=== PATIENT | male | born 1950 | race Caucasian/White ===

== ENCOUNTER 2017-01-02 06:47 | Emergency (ER) | payer MEDICARE, BC ==
[~2017-01-02] VITALS: Ht 170.2 cm; Wt 81.6 kg
[2017-01-02] MEDS ORDERED: LABE100T PO (06:53)
--- NOTE | 2017-01-02 06:57 | NUR ---
PT BIBSELF CHEST PAIN X 2 DAYS,DENIES SEX ENHANCING MEDS USE. PT AOX3 RR EVEN AND UNLABORED. NO SOB NOTED. NAD NOTED. NO NVD AT THIS TIME. PT GOWNED AND PLACED ON MONTIOR. DR. CUMMINGS AT BEDSIDE FOR EVAL.
[2017-01-02] MEDS ORDERED: LIDOCAINE VISCOUS 2% UD 15 ML UDC ONE (07:09)
[2017-01-02] MEDS ORDERED: MAG HYDROX/AL HYDROX/SIMETH 30 ML UDC ONE (07:09)
--- NOTE | 2017-01-02 07:12 | NUR ---
Alessia snyder in EDM - 01/02/17 at 0712 by [facility] AT BEDSIDE FOR EVAL.
--- NOTE | 2017-01-02 07:12 | NUR ---
RADIOLOGY AT BEDSIDE FOR CXR
--- NOTE | 2017-01-02 07:22 | NUR ---
REPORT GIVEN TO CAL CHAVARRIA FOR ROBINA
--- NOTE | 2017-01-02 07:23 | NUR ---
RECEIVED REPORT FOR ROBINA.
[2017-01-02 07:29] LABS: BASOPHILS # (AUTO) 0.1 /CMM (0.0-0.2); BASOPHILS % (AUTO) 0.5 % (0.0-2.0); EOSINOPHILS # (AUTO) 0.2 /CMM (0.0-0.7); HEMATOCRIT 35 % (39-51); HEMOGLOBIN 11.6 g/dL (13.5-17.5); LYMPHOCYTES # (AUTO) 11.4 /CMM (0.8-4.8); LYMPHOCYTES % (AUTO) 66.8 % (20.0-44.0); MEAN CORPUSCULAR HEMOGLOBIN 32 PG (26.0-33.0); MEAN CORPUSCULAR HGB CONC 33 g/dl (31.0-36.0); MEAN CORPUSCULAR VOLUME 96 fL (80-96); MONOCYTES # (AUTO) 1.9 /CMM (0.1-1.30); MONOCYTES % (AUTO) 11.1 % (2.0-12.0); NEUTROPHILS # (AUTO) 3.5 /CMM (1.8-8.9); NEUTROPHILS % (AUTO) 20.6 % (43.0-81.0); PLATELET COUNT (AUTO) 267 /CMM (150-450); RDW COEFFICIENT OF VARIATION 12.6 (11.5-15.0); RED BLOOD CELL COUNT(AUTO) 3.67 MIL/uL (4.5-6.0); WHITE BLOOD COUNT (AUTO) 17.1 K/uL (4.3-11.0)
[2017-01-02] MEDS ORDERED: LIDOCAINE VISCOUS 2% UD 15 ML UDC MM ONE (07:30)
[2017-01-02] MEDS ORDERED: MAG HYDROX/AL HYDROX/SIMETH 30 ML UDC PO ONE (07:30)
[2017-01-02 07:42] LABS: CALCIUM, SERUM 9.1 mg/dL (8.5-10.1); CARBON DIOXIDE 24 mmol/L (21-32); CHLORIDE 105 mmol/L (98-107); CREATININE 1.3 mg/dL (0.6-1.3); GLUCOSE 105 mg/dL (74-106); SODIUM SERUM 139 mmol/L (136-145); UREA NITROGEN, BLOOD 19 mg/dL (7-18)
[2017-01-02 07:50] LABS: TROPONIN I < 0.017 ng/mL (0.00-0.056)
[2017-01-02 07:55] LABS: ALANINE AMINOTRANSFERASE 97 U/L (12-78); ALKALINE PHOSPHATASE 170 U/L (46-116); ASPARTATE AMINOTRANSFERASE 63 U/L (15-37); B-TYPE NATRIURETIC PEPTIDE 77 PG/ML (0-125); BILIRUBIN,DIRECT 0.1 mg/dL (0.0-0.2); BILIRUBIN,TOTAL 0.7 mg/dL (0.2-1.0); TOTAL PROTEIN, SERUM 6.8 g/dL (6.4-8.2)
[2017-01-02 08:36] LABS: D-DIMER 0.98 mg/L(FEU (0.17-0.50); INR 1.02 (0.87-1.13); PROTHROMBIN TIME 10.6 SECS (9.5-12.7)
--- NOTE | 2017-01-02 08:39 | NUR ---
US TECH AT BEDSIDE.
[2017-01-02 08:55] LABS: EOSINOPHILS % (MANUAL) 4 % (0-4); LYMPHOCYTES % (MANUAL) 51 % (16-48); MONOCYTES % (MANUAL) 14 % (0-11.0); NEUTROPHILS % (MANUAL) 30 (42-76); REACTIVE LYMPHOCYTES 1 % (0-0)
--- NOTE | 2017-01-02 09:08 | NUR ---
304-2 KASEY CARDENAS RN
--- NOTE | 2017-01-02 09:45 | NUR ---
PATIENT TAKEN TO CT VIA WHEELCHAIR.
[2017-01-02] MEDS ORDERED: CT SWABBABLE VALVE TRANS SET 1 EA INFUS.SET MC ONE (09:52)
[2017-01-02] MEDS ORDERED: IOHEXOL-350 100 ML VIAL IV ONE (09:52)
--- NOTE | 2017-01-02 10:10 | NUR ---
PATIENT RETURNED FROM CT IN STABLE CONDITION.
--- NOTE | 2017-01-02 10:58 | NUR ---
IV removed. Catheter intact and site benign. Pressure and 4x4 applied to site. No bleeding noted. Patient discharged to home in stable condition. Written and verbal after care instructions given. Patient verbalizes understanding of instruction.
[2017-01-02 11:01] VITALS: BP 114/71
== END 2017-01-02 11:02 | disposition home or self-care (01) ==
LOC: ER 06:49
DX: K80.20 Calculus of gallbladder without cholecystitis without obstruction (principal); R10.13 Epigastric pain; I10 Essential (primary) hypertension; Z88.2 Allergy status to sulfonamides
CPT/HCPCS: 36415; 71010; 71275; 76705; 80048; 80076; 83690; 83880; 84484; 85025; 85378; 85730; 93005; 99285; A4606; Q9967; Z7610